=== PATIENT | male | born 1955 | race Hispanic/Latino ===

== ENCOUNTER → 2018-12-11 | Outpatient (CLI) | payer MEDICARE ==
[~2018-12-11] MED LIST: ALBUTEROL/IPRATROPIUM 3 ML NEB ONE; BACTROBAN15 G1 TOP; COUMADIN5 MG PO; COUMADIN7.5 MG PO; Ciprofloxacin PO; FERROUS SULFAT325 MG PO; FINASTERIDE5 MG PO; KEFLEX500 MG PO; LATANOPROST2.5 ML OP; LEVOTHYROXINE75 MCG PO; LOVENOX60 MG/0.6 SC; METOPROLOL TART25 MG PO; MIRALAX17 G1; MIRALAX17 GM PO; ULTRAM 50MG50 MG PO; WARFARIN SODIU2.5 MG PO; Z.0.ALAVERT10 MG; Z.0.BACLOFEN10 MG PO; Z.0.FLOMAX0.4 MG PO; Z.0.LEVOTHYROXINE50 PO; Z.0.NEXIUM40 MG PO; ZANTAC150 MG PO; [UNRECOGNIZED DRUG - OTHER]; [UNRECOGNIZED DRUG - OTHER] PO
--- NOTE | 2018-12-11 14:07 | Diagnostic Imaging Report ---
EXAMINATION: CT scan of the chest without contrast. TECHNIQUE: Spiral CT images of the chest were performed from the lung apices to the level of the adrenal glands. No intravenous contrast was administered per referring physician request. Coronal and sagittal reformatted images were obtained. COMPARISON: Multiple prior chest radiographs most recently 08/24/2017 CLINICAL HISTORY:Pleural effusion DISCUSSION: ABSENCE OF INTRAVENOUS CONTRAST DECREASES SENSITIVITY FOR DETECTION OF FOCAL LESIONS AND VASCULAR PATHOLOGY. LINES/TUBES: None. LUNGS AND AIRWAYS: Mild biapical pleural-parenchymal scar. Right lung is otherwise well-inflated and without consolidation, mass lesion, or bronchiectasis. Lingular and left lower lobe volume loss with bandlike opacities with pleural extension and architectural distortion most notably medially within the left lower lobe for example on series 3 image 90. Uniform posterior and lateral pleural thickening along with prominent epicardial fat. Scattered small pleural calcifications. The airways are normal, without endobronchial lesions. PLEURA: No pleural effusion. No pneumothorax. HEART AND MEDIASTINUM: Visualized portions of the thyroid gland are normal. moderate cardiomegaly status post mitral valve replacement. Calcifications of the right atrial appendage. Sequela of coronary artery bypass. Atherosclerotic calcifications of the [place] coronary arteries. No pericardial effusion. LYMPH NODES: There is no mediastinal, hilar or axillary lymphadenopathy. ABDOMEN: Visualized portions of the liver, spleen, pancreas, adrenals, and kidneys are unremarkable. BONES AND SOFT TISSUES: Status post median sternotomy. No acute osseous abnormalities. Diffuse osteopenia with multilevel degenerative disc changes of the thoracic spine. IMPRESSION: No pleural effusion per clinical query. 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 Nodular opacity in the medial left lung base with pleural extension and architectural distortion likely reflects rounded atelectasis. Follow-up CT scan of the chest without contrast in 3-6 months is suggested to document stability. Signed by: Dr. Juan Magana M.D. on 12/11/2018 2:04 PM
== END ==
LOC: CT 13:06
PROVIDERS: ATTEND Internal Medicine
DX: Z87.09 Personal history of other diseases of the respiratory system (principal)
CPT/HCPCS: 71250; 94060; 94727; 94729

== ENCOUNTER 2019-01-20 14:11 | Emergency (ER) | payer MEDICARE ==
[~2019-01-20] VITALS: Ht 170.2 cm; Wt 53.5 kg
[~2019-01-20 14:11] MED LIST changes: -ALBUTEROL/IPRATROPIUM 3 ML NEB ONE
--- OUTSIDE RECORDS SUMMARY | 2019-01-20 14:14 | XMS REPORT ---
Author Author [facility] Address Unknown Phone Unavailable Care Team Providers Care Supervisor [employer] Name Role Phone WAQAS HOWE Unavailable Unavailable Mayur HANKINS Unavailable Unavailable Problems This patient has no known problems. Allergies, Adverse Reactions, Alerts This patient has no known allergies or adverse reactions. Medications This patient has no known medications. Results Test Description Test Time Test Comments Text Results Atomic Results Result Comments CT CHEST WO 2018-12-11 13:53:00 [facility] [address] [address] Patient Name: TETE MARIE MR #: [id number] : 1955 Age/Sex: 63/M Req #: [id number] Adm Physician: Ordered by: WAQAS HOWE MD Report #: [id number] Location: CT Room/Bed: Procedure: [id number] CT/CT CHEST WO Exam Date: Exam Time: REPORT STATUS: Signed EXAMINATION: CT scan of the chest without contrast. TECHNIQUE: Spiral CT images of the chest were performed from the lung apices to the level of the adrenal glands. No intravenous contrast was administered per referring physician request. Coronal and sagittal reformatted images were obtained. COMPARISON: Multiple prior chest radiographs most recently 08/24/2017 CLINICAL HISTORY:Pleural effusion DISCUSSION: ABSENCE OF INTRAVENOUS CONTRAST DECREASES SENSITIVITY FOR DETECTION OF FOCAL LESIONS AND VASCULAR PATHOLOGY. LINES/TUBES: None. LUNGS AND AIRWAYS: Mild biapical pleural-parenchymal scar. Right lung is otherwise well-inflated and without consolidation, mass lesion, or bronchiectasis. Lingular and left lower lobe volume loss with bandlike opacities with pleural extension and architectural distortion most notably medially within the left lower lobe for example on series 3 image 90. Uniform posterior and lateral pleural thickening along with prominent epicardial fat. Scattered small pleural calcifications. The airways are normal, without endobronchial lesions. PLEURA: No pleural effusion. No pneumothorax. HEART AND MEDIASTINUM: Visualized portions of the thyroid gland are normal. moderate cardiomegaly status post mitral valve replacement. Calcifications of the right atrial appendage. Sequela of coronary artery bypass. Atherosclerotic calcifications of the [place] coronary arteries. No pericardial effusion. LYMPH NODES: There is no mediastinal, hilar or axillary lymphadenopathy. ABDOMEN: Visualized portions of the liver, spleen, pancreas, adrenals, and kidneys are unremarkable. BONES AND SOFT TISSUES: Status post median sternotomy. No acute osseous abnormalities. Diffuse osteopenia with multilevel degenerative disc changes of the thoracic spine. IMPRESSION: No pleural effusion per clinical query. 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 Nodular opacity in the medial left lung base with pleural extension and architectural distortion likely reflects rounded atelectasis. Follow-up CT scan of the chest without contrast in 3-6 months is suggested to document stability. Signed by: Dr. Annalise Jara M.D. on 12/11/2018 2:04 PM Dictated By: ANNALISE JARA MD [id number] Transcribed By: BALJINDER on 12/11/18 1401 COPY TO: WAQAS HOWE MD CHEST SINGLE (PORTABLE) [place] [address] Patient Name: TETE MARIE MR #: [id number] : 1955 Age/Sex: 62/M Req #: [id number] Adm Physician: Ordered by: ALIYA ANDERSON NEUROSCIENTIST Report #: [id number] Location: Room/Bed: Procedure: [id number] DX/CHEST SINGLE (PORTABLE) Exam Date: 08/24/17 Exam Time: 1636 REPORT STATUS: Signed PROCEDURE: A single AP view of the chest. COMPARISON: Chest x-ray 01/06/17. INDICATIONS: CHEST PRESSURE FINDINGS: Lines/tubes: Median sternotomy wires and mediastinal clips are unchanged. Prosthetic valve remains in place. Lungs: The lungs are hyper inflated and clear. Stable scarring the left lung base. There is no evidence of pneumonia or pulmonary edema. Pleura: Unchanged small left pleural effusion versus pleural thickening. Heart and mediastinum: Stable mild cardiomegaly. Bones: No acute bony abnormality. Stable posttraumatic/postsurgical changes in left ribs. IMPRESSION: 1. Stable scarring in the left lung base with unchanged left pleural thickening/small pleural effusion. 2. No acute cardiopulmonary disease. Dictated by: Melissa Blanchard M.D. on 08/24/2017 at 17:17 Electronically approved by: Melissa Blanchard M.D. on 08/24/2017 at 17:17 Dictated By: MELISSA BLANCHARD MD 16 Transcribed By: DEEPA on 08/24/171716 COPY TO: ALIYA ANDERSON NEUROSCIENTIST
[2019-01-20] MEDS ORDERED: SODIUM CHLORIDE 0.9% 1000ML 1,000 ML IV STA (14:38)
[2019-01-20 15:17] LABS: BASOPHILS % 0.7 % (0.0-1.0); EOSINOPHILS # (AUTO) 0.1 (0.0-0.4); EOSINOPHILS % 1.7 % (0.0-6.0); HEMATOCRIT 37.3 % (38.2-49.6); HEMOGLOBIN 12.2 g/dL (14.0-18.0); LYMPHOCYTES # (AUTO) 0.7 (1.0-3.2); LYMPHOCYTES % 14.1 % (18.0-39.1); MEAN CORPUSCULAR HEMOGLOBIN 31.1 pg (28-32); MEAN CORPUSCULAR HGB CONC 32.7 g/dL (31-35); MEAN CORPUSCULAR VOLUME 95.2 fL (81-99); MONOCYTES # (AUTO) 0.5 (0.2-0.8); MONOCYTES % 10.4 % (4.4-11.3); NEUTROPHILS # (AUTO) 3.4 (2.1-6.9); NEUTROPHILS % 73.1 % (38.7-80.0); PLATELET COUNT 284 x10e3/uL (140-360); RED BLOOD COUNT 3.92 x10e6/uL (4.3-5.7)
[2019-01-20 15:25] LABS: INR 3.41; PROTHROMBIN TIME 35.2 seconds (11.9-14.5)
[2019-01-20 15:26] LABS: PARTIAL THROMBOPLASTIN TIME 56.4 seconds (23.8-35.5)
[2019-01-20 15:34] LABS: ALANINE AMINOTRANSFERASE 19 IU/L (0-55); ALBUMIN 3.6 g/dL (3.5-5.0); ALBUMIN/GLOBULIN RATIO 0.9 (0.8-2.0); ALKALINE PHOSPHATASE 60 IU/L (40-150); ANION GAP 9.2 mmol/L (8-16); BLOOD UREA NITROGEN 20 mg/dL (7-26); BUN/CREATININE RATIO 25 (6-25); CARBON DIOXIDE 30 mmol/L (22-29); CHLORIDE 101 mmol/L (98-107); CREATININE, SERUM 0.79 mg/dL (0.72-1.25); EST GLOMERULAR FILTRATION RATE > 60 ML/MIN (60-); GLUCOSE 94 mg/dL (74-118); POTASSIUM 4.2 mmol/L (3.5-5.1); SODIUM 136 mmol/L (136-145)
[2019-01-20 15:34] LABS: CLARITY,URINE CLOUDY (CLEAR); COLOR,URINE BROWN (YELLOW); LEUKOCYTE ESTERASE ,URINE NEGATIVE (NEGATIVE); NITRITE,URINE NEGATIVE (NEGATIVE)
[2019-01-20 15:35] LABS: BACTERIA,URINE MODERATE /HPF; BILIRUBIN,URINE NEGATIVE (NEGATIVE); EPITHELIAL CELLS,URINE FEW /LPF; KETONES,URINE NEGATIVE (NEGATIVE); PROTEIN,URINE DIPSTICK 2+ (NEGATIVE); RBC,URINE >50 /HPF (0-5); URINE UROBILINOGEN 0.2 mg/dL (0.2 - 1); WBC,URINE (MAN) 0-5 /HPF (0-5)
[2019-01-20] MEDS ORDERED: IOPAMIDOL 370 MG/ML 200 ML INFUS..BTL INJ ONE (16:01)
[2019-01-20] MEDS ORDERED: SODIUM CHLORIDE 0.9% 250ML 250 ML ONE (16:02)
[2019-01-20] MEDS ORDERED: MEROPENEM 1GM 100 ML IV NR (17:45)
--- NOTE | 2019-01-20 17:51 | Diagnostic Imaging Report ---
EXAMINATION: CT of the abdomen and pelvis with and without contrast. TECHNIQUE: Helical CT images of the abdomen and pelvis were performed from the lung bases to the lesser trochanters before and after the intravenous administration of 150 cc of isovue 300 and the oral administration of none. Hematuria protocol. Dose modulation, iterative reconstruction, and/or weight based adjustment of the mA/kV was utilized to reduce the radiation dose to as low as reasonably achievable. COMPARISON: 01/08/2019 CLINICAL HISTORY:hematuria, pain DISCUSSION: ABDOMEN/PELVIS: LOWER THORAX:Unremarkable. HEPATOBILIARY: No focal hepatic lesions. No biliary ductal dilatation.The gallbladder is normal. SPLEEN: No splenomegaly. PANCREAS: No focal masses or ductal dilatation. ADRENALS: No adrenal nodules. KIDNEYS/URETERS: Right renal 2 mm calculus. Punctate left renal calculi. No solid mass lesion. No filling defect within the collecting system. Few cysts. PELVIC ORGANS/BLADDER: The bladder is normal. PERITONEUM/RETROPERITONEUM: No free air or fluid. LYMPH NODES: No intra-abdominal,retroperitoneal, pelvic or inguinal lymphadenopathy. VESSELS: Mild vascular calcifications. GI TRACT: No distention or wall thickening. BONES AND SOFT TISSUE: No bony destructive lesions. No soft tissue abnormalities. IMPRESSION: Nonobstructing renal calculi. Otherwise, unremarkable CT urogram Signed by: Dr. Braydon Townsend M.D. on 01/20/2019 5:48 PM
== END 2019-01-20 19:37 | disposition home or self-care (01) ==
LOC: ER 14:11
DX: R30.0 Dysuria (principal); N30.91 Cystitis, unspecified with hematuria; I25.10 Atherosclerotic heart disease of native coronary artery without angina pectoris; G35 Multiple sclerosis; E03.9 Hypothyroidism, unspecified; D64.9 Anemia, unspecified; Z95.1 Presence of aortocoronary bypass graft
CPT/HCPCS: 36415; 74178; 80053; 81001; 85025; 85610; 85730; 87086; 87186; 99284; J2185; J7030; J7050; Q9967

== ENCOUNTER 2019-03-30 02:13 | Observation (INO) | payer MEDICARE ==
[~2019-03-30] VITALS: Ht 170.2 cm; Wt 53.5 kg
[2019-03-30] VITALS (7 sets, daily range): BP systolic 133–144; BP diastolic 65–75
[2019-03-30 02:45] LABS: BASOPHILS % 1.2 % (0.0-1.0); EOSINOPHILS # (AUTO) 0.1 (0.0-0.4); EOSINOPHILS % 2.7 % (0.0-6.0); HEMOGLOBIN 12.1 g/dL (14.0-18.0); LYMPHOCYTES # (AUTO) 0.9 (1.0-3.2); LYMPHOCYTES % 28.2 % (18.0-39.1); MEAN CORPUSCULAR HEMOGLOBIN 30.2 pg (28-32); MEAN CORPUSCULAR HGB CONC 31.8 g/dL (31-35); MEAN CORPUSCULAR VOLUME 94.8 fL (81-99); MONOCYTES # (AUTO) 0.6 (0.2-0.8); MONOCYTES % 18.5 % (4.4-11.3); NEUTROPHILS # (AUTO) 1.6 (2.1-6.9); NEUTROPHILS % 49.1 % (38.7-80.0); PLATELET COUNT 241 x10e3/uL (140-360); RED BLOOD COUNT 4.01 x10e6/uL (4.3-5.7); RED CELL DISTRIBUTION WIDTH 13.6 % (11.7-14.4)
[2019-03-30] MEDS ORDERED: LATANOPROST2.5 ML OU (02:50)
[2019-03-30] MEDS ORDERED: BETASERON0.3 MG SC (02:50)
[2019-03-30] MEDS ORDERED: BACLOFEN20 MG PO (02:50)
[2019-03-30 02:56] LABS: INR 3.2; PROTHROMBIN TIME 33.5 seconds (11.9-14.5)
[2019-03-30 02:57] LABS: PARTIAL THROMBOPLASTIN TIME 57.5 seconds (23.8-35.5)
[2019-03-30 03:06] LABS: ALANINE AMINOTRANSFERASE 20 IU/L (0-55); ALBUMIN 3.7 g/dL (3.5-5.0); ALKALINE PHOSPHATASE 72 IU/L (40-150); ANION GAP 12.8 mmol/L (8-16); BLOOD UREA NITROGEN 17 mg/dL (7-26); BUN/CREATININE RATIO 22 (6-25); CALCIUM 9.1 mg/dL (8.4-10.2); CARBON DIOXIDE 27 mmol/L (22-29); CHLORIDE 100 mmol/L (98-107); CREATINE KINASE 91 IU/L (30-200); CREATININE, SERUM 0.77 mg/dL (0.72-1.25); EST GLOMERULAR FILTRATION RATE > 60 ML/MIN (60-); GLUCOSE 120 mg/dL (74-118); POTASSIUM 3.8 mmol/L (3.5-5.1); SODIUM 136 mmol/L (136-145)
--- NOTE | 2019-03-30 03:14 | Diagnostic Imaging Report ---
EXAMINATION: CHEST SINGLE (PORTABLE) COMPARISON: CT chest 12/11/2018 INDICATION: Chest pressure ^CP ^[id number] ^0240 ^N DISCUSSION: Frontal view of the chest obtained at 0244 hours. HEART AND MEDIASTINUM: Stable cardiomegaly. Prosthetic mitral valve annulus is stable LINES: None. LUNGS: The lungs are diffusely hyperinflated. Blunting of the left lateral costophrenic angle tracking along the lateral lung base is stable. Right lung is clear. PLEURA: No pneumothorax. BONES AND SOFT TISSUES: Sternotomy wires are intact. Stable mild volume loss of the left hemithorax. No focal osseous lesions. The soft tissues are normal. IMPRESSION: Stable left pleural thickening. Stable pulmonary hyperinflation consistent with COPD. Cardiomegaly. No vascular congestion. Signed by: Dr. Susanne Levi MD on 03/30/2019 3:11 AM
[2019-03-30] MEDS ORDERED: ACETAMINOPHEN 325 MG TAB PO ONE (03:30)
[2019-03-30 03:35] LABS: ALBUMIN/GLOBULIN RATIO 0.9 (0.8-2.0)
--- NOTE | 2019-03-30 03:37 | NUR ---
SED RATE COLLECTED AND SENT. MEDICATED WITH TYLENOL FOR PAIN PER ORDERS
[2019-03-30] MEDS ORDERED: NITROGLYCERIN 0.4 MG SUBL SL PRN (04:15)
[2019-03-30] MEDS ORDERED: ACETAMINOPHEN 325 MG TAB PO PRN ×2 (04:15→05:00)
[2019-03-30] MEDS ORDERED: SODIUM CHLORIDE FLUSH 10 ML SYR INJ PRN (04:15)
[2019-03-30] MEDS ORDERED: ONDANSETRON HCL INJ 2MG/ML 2ML 2 MG/ML VIAL IV PRN (04:15)
[2019-03-30] MEDS ORDERED: FAMOTIDINE 20 MG TAB PO SCH ×2 (04:15→09:00)
--- NOTE | 2019-03-30 05:47 | Diagnostic Imaging Report ---
EXAMINATION: Head CT without contrast. HISTORY:Headache, status post fall on Coumadin. COMPARISON:None. TECHNIQUE: Multidetector axial images were obtained from the foramen magnum to the vertex without contrast. The images were reconstructed using brain and bone algorithms. Thin section brain images were reformatted into coronal and sagittal planes. Dose modulation, iterative reconstruction, and/or weight based adjustment of the mA/kV was utilized to reduce the radiation dose to as low as reasonably achievable. Intravenous contrast: None IMAGE QUALITY: Acceptable. FINDINGS: Skull/scalp: No lytic or blastic. lesions. No surgical changes. Parenchyma: Nonspecific few, scattered supratentorial white matter hypodensity are likely related to small vessel ischemic changes. Focal hypodensity in left caudate head that extends to anterior limb of left internal capsule and anterior aspect of left putamen represents old vascular insult. No acute hemorrhage, mass or acute major vascular territorial infarct. Arteries: No density suggestive of thrombosis. Dural sinuses: No abnormal density suggestive of thrombosis. Ventricles: No hydrocephalus or displacement. Extra-axial spaces: No abnormal density. Brain volume: Mild generalized cerebral volume loss. Craniocervical junction: No mass, Chiari malformation, or basilar invagination. Sella: No mass. Paranasal/mastoid sinuses: Imaged portions unremarkable. IMPRESSION: 1. No acute posttraumatic intracranial abnormality. 2. Mild supratentorial white matter microvascular ischemic change. Old vascular insult in left striato- capsular region. 3. Mild generalized cerebral volume loss. Signed by: Dr. Michaela Chand M.D. on 03/30/2019 5:44 AM
--- NOTE | 2019-03-30 06:40 | NUR ---
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 call swanson within reach and bed in lowest position.
[2019-03-30] MEDS ORDERED: ASPIRIN 81 MG ENTERIC COATED PO SCH (09:00)
[2019-03-30 10:51] LABS: CREATINE KINASE 74 IU/L (30-200)
[2019-03-30] MEDS ORDERED: METOPROLOL TARTRATE 25 MG TAB PO SCH (17:00)
[2019-03-30] MEDS ORDERED: WARFARIN SOD 5 MG TAB PO SCH (17:00)
[2019-03-30 17:39] LABS: CREATINE KINASE MB 1.8 ng/mL (0-5.0)
[2019-03-30] MEDS ORDERED: LISINOPRIL2.5 MG PO (18:31)
--- NOTE | 2019-03-30 18:40 | Consultation ---
DATE OF CONSULTATION: 03/30/2019 Cardiology Consult Note REASON FOR CONSULT: Chest pain. CHIEF COMPLAINT: Headaches and chest pain. HISTORY OF PRESENT ILLNESS: The patient is a 63-year-old man with history of mitral valve replacement, mechanical mitral valve on Coumadin, presenting with several days of chest pain and headaches. He says headaches are what bothers him more, but he has also been having episodes of chest pain that are left-sided, sharp, moderate to severe in severity. When they occur, they lasts somewhere between 10 minutes to up to an hour, nonexertional, not associated with shortness of breath or diaphoresis. He says he has history of gastroesophageal reflux disease. Of note, the patient had one vessel bypass surgery along with his mitral valve replacement in 2012, likely OLGUIN to LAD. PAST MEDICAL HISTORY: 1. GERD. 2. Benign prostatic hypertrophy. 3. Hypothyroidism. PAST SURGICAL HISTORY: Status post mechanical mitral valve replacement and one vessel coronary artery bypass graft surgery in 2012. SOCIAL HISTORY: The patient does not smoke, drink, or abuse drugs. FAMILY HISTORY: No family history of early CAD or sudden cardiac . REVIEW OF SYSTEMS: A 10-point review of systems as per HPI, otherwise negative. OUTPATIENT MEDICATIONS: Reviewed. OBJECTIVE: VITAL SIGNS: Temperature afebrile, pulse 65, respiratory rate 21, blood pressure 134/65, and saturating 99% on room air. GENERAL: Middle-aged man, well developed, well nourished, in no acute distress. CARDIOVASCULAR: Regular rate and rhythm. Mechanical click. No murmurs, rubs, or gallops. LUNGS: Clear to auscultation bilaterally. ABDOMEN: Soft, nontender, and nondistended. NEURO AND PSYCH: Alert and oriented to person, place, and time. Normal affect. INPATIENT MEDICATIONS: Reviewed. LABORATORY DATA: Reviewed. Hemoglobin is 12.1. Troponins are negative x2. INR 3.2, which is therapeutic. IMAGING DATA: Reviewed. Chest x-ray shows stable left pleural thickening, stable hyperinflation consistent with COPD and no pulmonary edema or vascular congestion. Head CT shows no acute intracranial abnormalities. TELEMETRY DATA: Reviewed, shows normal sinus rhythm. Echocardiogram reviewed. Ejection fraction about 45% to 50%, normal functioning mechanical valve. ASSESSMENT: 1. Coronary artery disease status post one vessel coronary artery bypass graft in 2012. 2. Mechanical mitral valve replacement in 2012. 3. Chronic systolic heart failure, ejection fraction 45%. 4. Chest pain, atypical. PLAN: The patient has been ruled out for acute LA with serial troponins and EKGs. Echocardiogram shows stable mechanical mitral valve function. INR is therapeutic. Chest pain is atypical, unlikely to be cardiac in origin. The patient is okay to be discharged from cardiovascular standpoint and follow up with his outpatient nursing professor. We can discuss possible outpatient stress test at that time. Continue current dose of Coumadin. Thank you for this consult. We will continue to follow. MD BALDEV Bradshaw/MODL /[id number]
--- NOTE | 2019-03-30 18:55 | NUR ---
patient alert and oriented with at bedside. discharge instructions given to patient at this time, both verbalized understanding. IV discontinued, catheter in tact and pressure dressing applied. Patient to be escorted to personal auto for to drive home.
[2019-03-31] MEDS ORDERED: LEVOTHYROXINE SODIUM 75 MCG TAB PO SCH (06:00)
[2019-03-31] MEDS ORDERED: PANTOPRAZOLE SOD 40 MG TABEC PO SCH (07:30)
[2019-03-31] MEDS ORDERED: FINASTERIDE 5 MG TAB PO SCH (09:00)
[2019-03-31] MEDS ORDERED: TAMSULOSIN HCL 0.4 MG CAP PO SCH (09:00)
== END 2019-03-30 18:55 | disposition home or self-care (01) ==
LOC: ER 02:13 → ERHOLD 04:46 → IMCU 04:55
PROVIDERS: ADMIT Internal Medicine; ATTEND Internal Medicine
DX: R07.89 Other chest pain (principal); G44.219 Episodic tension-type headache, not intractable; Z95.2 Presence of prosthetic heart valve; Z79.01 Long term (current) use of anticoagulants; K21.9 Gastro-esophageal reflux disease without esophagitis; N40.0 Benign prostatic hyperplasia without lower urinary tract symptoms; E03.9 Hypothyroidism, unspecified; Z95.1 Presence of aortocoronary bypass graft; I11.0 Hypertensive heart disease with heart failure; I50.22 Chronic systolic (congestive) heart failure; Z88.8 Allergy status to other drugs, medicaments and biological substances
CPT/HCPCS: 36415; 70450; 71045; 80053; 82550; 82553; 83880; 84484; 85025; 85610; 85651; 85730; 93005; 93306; 99284; G0378

== ENCOUNTER 2021-11-15 16:43 | Emergency (ER) | payer MEDICARE ==
[~2021-11-15] VITALS: Ht 170.2 cm; Wt 53.5 kg
[~2021-11-15 16:43] MED LIST changes: +BACLOFEN20 MG PO; +BETASERON0.3 MG SC; +LATANOPROST2.5 ML OU; +LISINOPRIL2.5 MG PO
[2021-11-15 17:13] LABS: BASOPHILS # (AUTO) 0.1 (0.0-0.1); BASOPHILS % 1.3 % (0.0-1.0); EOSINOPHILS # (AUTO) 0.1 (0.0-0.4); EOSINOPHILS % 1.7 % (0.0-6.0); HEMATOCRIT 38.7 % (38.2-49.6); HEMOGLOBIN 12.2 g/dL (14.0-18.0); MEAN CORPUSCULAR HGB CONC 31.5 g/dL (31-35); MEAN CORPUSCULAR VOLUME 95.3 fL (81-99); MONOCYTES # (AUTO) 0.6 (0.2-0.8); MONOCYTES % 12.1 % (4.4-11.3); NEUTROPHILS # (AUTO) 2.9 (2.1-6.9); NEUTROPHILS % 63.7 % (38.7-80.0); PLATELET COUNT 256 x10e3/uL (140-360); RED BLOOD COUNT 4.06 x10e6/uL (4.3-5.7)
[2021-11-15 17:20] LABS: INR 2.83; PROTHROMBIN TIME 31.3 seconds (11.9-14.5)
[2021-11-15 17:21] LABS: PARTIAL THROMBOPLASTIN TIME 50.3 seconds (23.8-35.5)
[2021-11-15 17:28] LABS: ANION GAP 8.2 mmol/L (8-16); CALCIUM 9.3 mg/dL (8.4-10.2); CREATININE, SERUM 0.76 mg/dL (0.72-1.25); POTASSIUM 4.2 mmol/L (3.5-5.1)
[2021-11-15 17:34] LABS: CREATINE KINASE MB 1.4 ng/mL (0-5.0)
[2021-11-15] MEDS ORDERED: SODIUM CHLORIDE 0.9% 50ML 50 ML ONE (18:08)
[2021-11-15] MEDS ORDERED: IOPAMIDOL 370 MG/ML 200 ML INFUS..BTL INJ ONE (18:08)
== END 2021-11-15 19:41 | disposition home or self-care (01) ==
LOC: ER 17:51
DX: R09.1 Pleurisy (principal); R94.31 Abnormal electrocardiogram [ECG] [EKG]; E03.9 Hypothyroidism, unspecified; D64.9 Anemia, unspecified; G35 Multiple sclerosis; K21.9 Gastro-esophageal reflux disease without esophagitis; Z20.822 Contact with and (suspected) exposure to COVID-19; Z95.2 Presence of prosthetic heart valve
CPT/HCPCS: 36415; 71260; 80048; 82550; 82553; 84484; 85025; 85610; 85730; 93005; 99284; Q9967; U0002

== ENCOUNTER 2023-08-11 19:40 | Emergency (ER) | payer MEDICARE ==
[~2023-08-11] VITALS: Ht 170.2 cm; Wt 67.1 kg
[2023-08-11 21:03] LABS: BASOPHILS % 0.7 % (0.0-1.0); EOSINOPHILS # (AUTO) 0.1 (0.0-0.4); EOSINOPHILS % 3.4 % (0.0-6.0); HEMATOCRIT 33.4 % (38.2-49.6); HEMOGLOBIN 11.2 g/dL (14.0-18.0); LYMPHOCYTES # (AUTO) 0.5 (1.0-3.2); LYMPHOCYTES % 12.3 % (18.0-39.1); MEAN CORPUSCULAR HEMOGLOBIN 29.3 pg (28-32); MEAN CORPUSCULAR HGB CONC 33.5 g/dL (31-35); MEAN CORPUSCULAR VOLUME 87.4 fL (81-99); MONOCYTES # (AUTO) 0.5 (0.2-0.8); MONOCYTES % 12.7 % (4.4-11.3); NEUTROPHILS # (AUTO) 2.9 (2.1-6.9); NEUTROPHILS % 70.7 % (38.7-80.0); PLATELET COUNT 243 x10e3/uL (140-360); RED BLOOD COUNT 3.82 x10e6/uL (4.3-5.7); RED CELL DISTRIBUTION WIDTH 14.5 % (11.7-14.4); WHITE BLOOD COUNT 4.16 x10e3/uL (4.8-10.8)
[2023-08-11 21:19] LABS: ALANINE AMINOTRANSFERASE 18 IU/L (0-55); ALBUMIN 3.9 g/dL (3.5-5.0); ALBUMIN/GLOBULIN RATIO 1.1 (0.8-2.0); ALKALINE PHOSPHATASE 68 IU/L (40-150); ANION GAP 11.2 mmol/L (8-16); BLOOD UREA NITROGEN 11 mg/dL (7-26); BUN/CREATININE RATIO 14 (6-25); CALCIUM 9.2 mg/dL (8.4-10.2); CARBON DIOXIDE 31 mmol/L (22-29); CHLORIDE 98 mmol/L (98-107); CREATINE KINASE 79 IU/L (30-200); CREATININE, SERUM 0.78 mg/dL (0.72-1.25); GLUCOSE 125 mg/dL (74-118); POTASSIUM 4.2 mmol/L (3.5-5.1); SODIUM 136 mmol/L (136-145)
[2023-08-11 21:21] LABS: CLARITY,URINE SL CLOUDY (CLEAR); COLOR,URINE STRAW (YELLOW); KETONES,URINE NEGATIVE (NEGATIVE); LEUKOCYTE ESTERASE ,URINE TRACE (NEGATIVE); NITRITE,URINE NEGATIVE (NEGATIVE); PROTEIN,URINE DIPSTICK NEGATIVE (NEGATIVE); URINE UROBILINOGEN 0.2 mg/dL (0.2 - 1)
[2023-08-11] MEDS ORDERED: IOPAMIDOL 370 MG/ML 100 ML INFUS..BTL INJ ONE (21:28)
[2023-08-11 21:32] LABS: BACTERIA,URINE RARE /HPF; RBC,URINE 21-50 /HPF (0-5); WBC,URINE (MAN) 0-5 /HPF (0-5)
[2023-08-12 00:21] VITALS: BP 127/84; PULSE 74; RESP 18; TEMP 98.3; O2SAT 99
== END 2023-08-11 23:41 | disposition home or self-care (01) ==
LOC: ER 19:45
DX: R06.00 Dyspnea, unspecified (principal); R10.30 Lower abdominal pain, unspecified; R31.9 Hematuria, unspecified; E03.9 Hypothyroidism, unspecified; G35 Multiple sclerosis; K21.9 Gastro-esophageal reflux disease without esophagitis; Z95.4 Presence of other heart-valve replacement
CPT/HCPCS: 36415; 71260; 74177; 80053; 81001; 82550; 83690; 83880; 84484; 85025; 93005; 99284; Q9967

== ENCOUNTER 2023-08-25 19:22 | Emergency (ER) | payer MEDICARE ==
[~2023-08-25] VITALS: Ht 170.2 cm; Wt 67.1 kg
[2023-08-25 20:05] VITALS: O2SAT 98
[2023-08-25] MEDS ORDERED: ULTRAM 50MG50 MG PO (20:38)
== END 2023-08-25 20:26 | disposition home or self-care (01) ==
LOC: ER 19:28
DX: R10.9 Unspecified abdominal pain (principal); N20.0 Calculus of kidney; D64.9 Anemia, unspecified; E03.9 Hypothyroidism, unspecified; G35 Multiple sclerosis; K21.9 Gastro-esophageal reflux disease without esophagitis; Z95.4 Presence of other heart-valve replacement
CPT/HCPCS: 87086; 87186; 99282

== ENCOUNTER 2023-11-26 14:55 | Emergency (ER) | payer MEDICARE ==
[~2023-11-26] VITALS: Ht 170.2 cm; Wt 67.1 kg
[2023-11-26 15:02] VITALS: O2SAT 100
[2023-11-26 15:48] LABS: BILIRUBIN,URINE NEGATIVE (NEGATIVE); CLARITY,URINE CLOUDY (CLEAR); COLOR,URINE YELLOW (YELLOW); GLUCOSE, URINE NEGATIVE (NEGATIVE); KETONES,URINE NEGATIVE (NEGATIVE); LEUKOCYTE ESTERASE ,URINE NEGATIVE (NEGATIVE); NITRITE,URINE NEGATIVE (NEGATIVE); PH,URINE 7 (5 - 7); PROTEIN,URINE DIPSTICK NEGATIVE (NEGATIVE); URINE UROBILINOGEN 0.2 mg/dL (0.2 - 1)
[2023-11-26 16:00] LABS: EPITHELIAL CELLS,URINE FEW /LPF; RBC,URINE >50 /HPF (0-5)
[2023-11-26 16:01] LABS: BACTERIA,URINE MANY /HPF; TRANSITIONAL EPI CELLS,URINE FEW
== END 2023-11-26 17:00 | disposition home or self-care (01) ==
LOC: ER 15:14
DX: R31.9 Hematuria, unspecified (principal); G35 Multiple sclerosis; D64.9 Anemia, unspecified; E03.9 Hypothyroidism, unspecified; K21.9 Gastro-esophageal reflux disease without esophagitis; Z95.4 Presence of other heart-valve replacement
CPT/HCPCS: 81001; 99283

== ENCOUNTER 2024-09-05 10:51 | Inpatient (IN) | payer MEDICARE ==
[~2024-09-05] VITALS: Ht 170.2 cm; Wt 65.3 kg
[2024-09-05] VITALS (7 sets, daily range): BP systolic 122–135; BP diastolic 71–81; PULSE 66–103; RESP 16–18; TEMP 97.8–98; O2SAT 100
[2024-09-05 11:40] LABS: BASOPHILS % 0.7 % (0.0-1.0); EOSINOPHILS # (AUTO) 0.1 (0.0-0.4); EOSINOPHILS % 1.7 % (0.0-6.0); HEMATOCRIT 37.6 % (38.2-49.6); HEMOGLOBIN 11.8 g/dL (14.0-18.0); LYMPHOCYTES # (AUTO) 0.6 (1.0-3.2); LYMPHOCYTES % 20.3 % (18.0-39.1); MEAN CORPUSCULAR HEMOGLOBIN 29.7 pg (28-32); MEAN CORPUSCULAR HGB CONC 31.4 g/dL (31-35); MEAN CORPUSCULAR VOLUME 94.7 fL (81-99); MONOCYTES # (AUTO) 0.4 (0.2-0.8); NEUTROPHILS # (AUTO) 1.9 (2.1-6.9); NEUTROPHILS % 63.3 % (38.7-80.0); PLATELET COUNT 249 x10e3/uL (140-360); RED BLOOD COUNT 3.97 x10e6/uL (4.3-5.7); WHITE BLOOD COUNT 3.01 x10e3/uL (4.8-10.8)
[2024-09-05 12:00] LABS: INR 2.75; PROTHROMBIN TIME 30.4 seconds (11.9-14.5)
[2024-09-05 12:01] LABS: PARTIAL THROMBOPLASTIN TIME 49.4 seconds (23.8-35.5)
[2024-09-05 12:08] LABS: ALBUMIN 3.7 g/dL (3.5-5.0); ALBUMIN/GLOBULIN RATIO 0.9 (0.8-2.0); ANION GAP 10.2 mmol/L (8-16); BILIRUBIN,TOTAL 0.5 mg/dL (0.2-1.2); CALCIUM 9.3 mg/dL (8.4-10.2); CREATININE, SERUM 0.77 mg/dL (0.72-1.25); MAGNESIUM 1.9 MG/DL (1.3-2.1); POTASSIUM 4.2 mmol/L (3.5-5.1); TOTAL PROTEIN 7.8 g/dL (6.5-8.1)
[2024-09-05 12:16] LABS: TROPONIN I 0.014 ng/mL (0-0.300)
[2024-09-05] MEDS ORDERED: ONDANSETRON HCL INJ 2MG/ML 2ML 2 MG/ML VIAL IV PRN (12:30)
[2024-09-05] MEDS ORDERED: NITROGLYCERIN 0.4 MG SUBL SL PRN (12:30)
[2024-09-05] MEDS ORDERED: BETASERON0.3 M1 SC (14:48)
[2024-09-05] MEDS: POLYETHYLENE GLYCOL 3350 17 GM PACK PO PRN (22:10)
[2024-09-06] VITALS: BP 130/74; PULSE 69; RESP 18; TEMP 97.5; O2SAT 100
[2024-09-06 00:02] LABS: CREATINE KINASE 72 IU/L (30-200)
[2024-09-06 01:35] LABS: TROPONIN I < 0.001 ng/mL (0-0.300)
[2024-09-06] MEDS: FAMOTIDINE 20 MG/2 ML VIAL IV SCH (02:06)
[2024-09-06 04:00] VITALS: BP 123/74; PULSE 77; RESP 18; TEMP 97.9; O2SAT 100
[2024-09-06] MEDS: LEVOTHYROXINE SODIUM 75 MCG TAB PO SCH (06:00)
[2024-09-06 06:03] LABS: BASOPHILS % 0.9 % (0.0-1.0); EOSINOPHILS # (AUTO) 0.1 (0.0-0.4); EOSINOPHILS % 3.8 % (0.0-6.0); HEMATOCRIT 35.1 % (38.2-49.6); HEMOGLOBIN 11.1 g/dL (14.0-18.0); LYMPHOCYTES % 28.7 % (18.0-39.1); MEAN CORPUSCULAR HEMOGLOBIN 29.7 pg (28-32); MEAN CORPUSCULAR HGB CONC 31.6 g/dL (31-35); MEAN CORPUSCULAR VOLUME 93.9 fL (81-99); MONOCYTES # (AUTO) 0.5 (0.2-0.8); MONOCYTES % 14.1 % (4.4-11.3); NEUTROPHILS # (AUTO) 1.8 (2.1-6.9); NEUTROPHILS % 52.2 % (38.7-80.0); PLATELET COUNT 229 x10e3/uL (140-360); RED BLOOD COUNT 3.74 x10e6/uL (4.3-5.7); WHITE BLOOD COUNT 3.41 x10e3/uL (4.8-10.8)
[2024-09-06 06:26] LABS: CHOL/HDL RATIO 4.2 (3.9-4.7)
[2024-09-06 06:33] LABS: TROPONIN I 0.005 ng/mL (0-0.300)
[2024-09-06 08:45] VITALS: BP 123/74; PULSE 77; RESP 18; TEMP 97.9; O2SAT 100
[2024-09-06 08:55] VITALS: BP 127/68; PULSE 75; RESP 16; TEMP 98.3; O2SAT 98
[2024-09-06] MEDS ORDERED: REGADENOSON 0.4 MG/5 ML SYR IV ONE (12:34)
[2024-09-06] MEDS: TAMSULOSIN HCL 0.4 MG CAP PO SCH (15:21)
[2024-09-06 15:25] LABS: INR 3.22; PROTHROMBIN TIME 34.4 seconds (11.9-14.5)
[2024-09-06 16:19] VITALS: BP 136/79; PULSE 84; RESP 16; TEMP 98.3; O2SAT 99
[2024-09-06] MEDS: WARFARIN SOD 2.5 MG TAB PO SCH (16:34)
[2024-09-06 20:00] VITALS: BP 146/83; PULSE 94; RESP 20; TEMP 97.2; O2SAT 100
[2024-09-06] MEDS: BACLOFEN 10 MG TAB PO SCH (21:17)
[2024-09-07] VITALS (7 sets, daily range): BP systolic 128–157; BP diastolic 77–91; PULSE 78–107; RESP 18–19; TEMP 97.2–99.5; O2SAT 98–100
[2024-09-07] MEDS ORDERED: ASPIRIN 81 MG ENTERIC COATED PO SCH (09:00)
[2024-09-07] MEDS ORDERED: BACLOFEN 10 MG TAB PO SCH (09:00)
[2024-09-07] MEDS: METOPROLOL TARTRATE 25 MG TAB PO SCH (09:06)
[2024-09-07] MEDS: CLOPIDOGREL BISULFATE 75 MG TAB PO SCH (13:49)
[2024-09-07 18:33] LABS: INR 3.5; PROTHROMBIN TIME 36.7 seconds (11.9-14.5)
[2024-09-08] VITALS (7 sets, daily range): BP systolic 105–149; BP diastolic 73–80; PULSE 71–76; RESP 18–19; TEMP 97.7–98; O2SAT 95–100
[2024-09-08 06:01] LABS: CREATINE KINASE 134 IU/L (30-200)
[2024-09-08 06:21] LABS: TROPONIN I < 0.05 ng/mL (0.0-0.40)
[2024-09-08 13:33] LABS: INR 3.01; PROTHROMBIN TIME 32.6 seconds (11.9-14.5)
[2024-09-09] VITALS (8 sets, daily range): BP systolic 124–146; BP diastolic 70–83; PULSE 63–89; RESP 16–18; TEMP 97.6–98.8; O2SAT 97–100
[2024-09-09 09:28] LABS: INR 2.08; PROTHROMBIN TIME 24.5 seconds (11.9-14.5)
[2024-09-09 11:02] LABS: BASOPHILS # (AUTO) 0.1 (0.0-0.1); BASOPHILS % 1.1 % (0.0-1.0); EOSINOPHILS # (AUTO) 0.1 (0.0-0.4); EOSINOPHILS % 1.3 % (0.0-6.0); HEMATOCRIT 40.8 % (38.2-49.6); HEMOGLOBIN 12.7 g/dL (14.0-18.0); LYMPHOCYTES # (AUTO) 0.7 (1.0-3.2); LYMPHOCYTES % 14.1 % (18.0-39.1); MEAN CORPUSCULAR HGB CONC 31.1 g/dL (31-35); MEAN CORPUSCULAR VOLUME 96.2 fL (81-99); MONOCYTES # (AUTO) 0.6 (0.2-0.8); MONOCYTES % 12.4 % (4.4-11.3); NEUTROPHILS # (AUTO) 3.3 (2.1-6.9); NEUTROPHILS % 70.7 % (38.7-80.0); PLATELET COUNT 255 x10e3/uL (140-360); RED BLOOD COUNT 4.24 x10e6/uL (4.3-5.7); WHITE BLOOD COUNT 4.67 x10e3/uL (4.8-10.8)
[2024-09-09 11:16] LABS: ANION GAP 14.3 mmol/L (8-16); BILIRUBIN,TOTAL 1.2 mg/dL (0.2-1.2); CALCIUM 9.4 mg/dL (8.4-10.2); CREATININE, SERUM 0.79 mg/dL (0.72-1.25); MAGNESIUM 1.8 MG/DL (1.3-2.1); PHOSPHORUS 2.4 MG/DL (2.3-4.7); POTASSIUM 4.3 mmol/L (3.5-5.1); TOTAL PROTEIN 8.2 g/dL (6.5-8.1)
[2024-09-09 12:49] LABS: FREE T4 (FREE THYROXINE) 1.13 ng/dL (0.8-1.8); THYROID STIMULATING HORMONE 1.362 uIU/mL (0.350-4.940)
[2024-09-09] MEDS ORDERED: HEPARIN SOD/DEXTROSE 5% 25000 UNIT/250 ML BAG IV SCH (15:45)
[2024-09-09] MEDS: HEPARIN 25,000 UNIT/D5W 250ML 250 ML IV SCH (18:09)
[2024-09-09] MEDS: WARFARIN SOD 2.5 MG TAB PO SCH (18:53)
[2024-09-10 00:54] LABS: INR 1.91; PROTHROMBIN TIME 22.9 seconds (11.9-14.5)
[2024-09-10 03:33] VITALS: BP 144/75; PULSE 84; RESP 18; TEMP 97.9; O2SAT 98
[2024-09-10] MEDS ORDERED: ENOXAPARIN SOD INJ 60 MG/0.6 ML SYR SC SCH ×2 (06:00→17:00)
[2024-09-10 06:01] LABS: BASOPHILS % 0.8 % (0.0-1.0); EOSINOPHILS # (AUTO) 0.1 (0.0-0.4); EOSINOPHILS % 2.6 % (0.0-6.0); HEMATOCRIT 35.6 % (38.2-49.6); HEMOGLOBIN 11.6 g/dL (14.0-18.0); LYMPHOCYTES # (AUTO) 0.9 (1.0-3.2); LYMPHOCYTES % 18.5 % (18.0-39.1); MEAN CORPUSCULAR HEMOGLOBIN 29.9 pg (28-32); MEAN CORPUSCULAR HGB CONC 32.6 g/dL (31-35); MEAN CORPUSCULAR VOLUME 91.8 fL (81-99); MONOCYTES # (AUTO) 0.7 (0.2-0.8); MONOCYTES % 14.7 % (4.4-11.3); NEUTROPHILS # (AUTO) 3.2 (2.1-6.9); PLATELET COUNT 235 x10e3/uL (140-360); RED BLOOD COUNT 3.88 x10e6/uL (4.3-5.7); WHITE BLOOD COUNT 5.03 x10e3/uL (4.8-10.8)
[2024-09-10 06:21] LABS: INR 1.98; PROTHROMBIN TIME 23.5 seconds (11.9-14.5)
[2024-09-10 06:23] LABS: PARTIAL THROMBOPLASTIN TIME 79.2 seconds (23.8-35.5)
[2024-09-10 06:35] LABS: ALBUMIN 3.4 g/dL (3.5-5.0); ALBUMIN/GLOBULIN RATIO 0.9 (0.8-2.0); ANION GAP 10.9 mmol/L (8-16); CALCIUM 8.7 mg/dL (8.4-10.2); CREATININE, SERUM 0.74 mg/dL (0.72-1.25); POTASSIUM 3.9 mmol/L (3.5-5.1); TOTAL PROTEIN 7.2 g/dL (6.5-8.1)
[2024-09-10 08:00] VITALS: BP 134/72; PULSE 93; RESP 18; TEMP 97.7; O2SAT 97
[2024-09-10] MEDS: METOPROLOL TARTRATE 25 MG TAB PO SCH (08:56)
[2024-09-10 09:00] VITALS: BP 134/72; PULSE 93; RESP 18; TEMP 97.7; O2SAT 97
[2024-09-10 12:15] VITALS: BP 104/87; PULSE 72; RESP 18; TEMP 98; O2SAT 100
[2024-09-10] MEDS: HEPARIN SOD (PORCINE) 1000 UNIT/ML 30ML ONE (12:29)
[2024-09-10] MEDS: HEPARIN SOD/SOD CHLORIDE 2,000 ML ONE (12:31)
[2024-09-10] MEDS: VERAPAMIL HCL 2.5 MG/ML 2 ML VIAL ONE (12:31)
[2024-09-10] MEDS: SODIUM CHLORIDE 0.9% 1000ML 1,000 ML ONE (12:32)
[2024-09-10] MEDS: NITROGLYCERIN/D5W 200 MCG/ML 250 ML ONE (12:32)
[2024-09-10] MEDS: FENTANYL CITRATE/PF 100MCG/2 ML INJ ONE (12:33)
[2024-09-10] MEDS: LIDOCAINE HCL 2% LOCAL 20 ML VIAL ONE (12:33)
[2024-09-10] MEDS: IOPAMIDOL 370 MG/ML 100 ML INFUS..BTL INJ ONE (12:33)
[2024-09-10] MEDS: CLOPIDOGREL BISULFATE 75 MG TAB ONE (12:34)
[2024-09-10] MEDS: MIDAZOLAM HCL 2 MG/2 ML VIAL ONE (12:34)
[2024-09-10] MEDS: ASPIRIN 325 MG TAB ONE (12:34)
[2024-09-10 16:00] VITALS: BP 124/76; PULSE 79; RESP 17; TEMP 97.8; O2SAT 99
[2024-09-10] MEDS ORDERED: LOPRESSOR25 MG PO (16:59)
[2024-09-10] MEDS ORDERED: PLAVIX75 MG PO (16:59)
[2024-09-10] MEDS ORDERED: ATORVASTATIN CA40 MG PO (16:59)
[2024-09-10] MEDS ORDERED: NITROSTAT0.4 MG SL (16:59)
[2024-09-10] MEDS ORDERED: LOVENOX60 MG/0.6 SC (16:59)
[2024-09-10] MEDS ORDERED: ONDANSETRON ODT4 MG PO (16:59)
[2024-09-10] MEDS: ENOXAPARIN SOD INJ 60 MG/0.6 ML SYR SC ONE (17:43)
[2024-09-10] MEDS: ENOXAPARIN SOD INJ 60 MG/0.6 ML SYR SC SCH (17:45)
[2024-09-10 17:46] VITALS: BP 124/76; PULSE 79
[2024-09-10] MEDS ORDERED: ONDANSETRON HCL 4 MG ORAL DISINTEGRATING TAB PO PRN (18:15)
[2024-09-10] MEDS ORDERED: ATORVASTATIN 40 MG TAB PO SCH (21:00)
== END 2024-09-10 20:30 | disposition home or self-care (01) | DRG 322 ==
LOC: ER 11:00 → ERHOLD 12:31 → MED/SURG2 14:41 → OBSVTOIN 09-07 11:17
PROVIDERS: ADMIT Internal Medicine; ATTEND Internal Medicine
PROC: 027034Z Dilation of Coronary Artery, One Artery with Drug-eluting Intraluminal Device, Percutaneous Approach (ICD-10-PCS; principal; 2024-09-09)
PROC: 4A023N7 Measurement of Cardiac Sampling and Pressure, Left Heart, Percutaneous Approach (ICD-10-PCS; 2024-09-09)
PROC: B2111ZZ Fluoroscopy of Multiple Coronary Arteries using Low Osmolar Contrast (ICD-10-PCS; 2024-09-09)
PROC: B2121ZZ Fluoroscopy of Single Coronary Artery Bypass Graft using Low Osmolar Contrast (ICD-10-PCS; 2024-09-09)
DX: I25.10 Atherosclerotic heart disease of native coronary artery without angina pectoris (principal); G35 Multiple sclerosis; E03.9 Hypothyroidism, unspecified; E78.5 Hyperlipidemia, unspecified; K21.9 Gastro-esophageal reflux disease without esophagitis; N40.0 Benign prostatic hyperplasia without lower urinary tract symptoms; N31.9 Neuromuscular dysfunction of bladder, unspecified; Z79.02 Long term (current) use of antithrombotics/antiplatelets; Z79.01 Long term (current) use of anticoagulants; Z79.890 Hormone replacement therapy; Z95.2 Presence of prosthetic heart valve; Z95.1 Presence of aortocoronary bypass graft; Z88.1 Allergy status to other antibiotic agents; Z88.5 Allergy status to narcotic agent; Z88.8 Allergy status to other drugs, medicaments and biological substances
CPT/HCPCS: 36415; 71045; 78452; 80053; 80061; 82550; 83735; 83880; 84100; 84439; 84443; 84484; 85025; 85610; 85730; 92928; 93005; 93017; 93455; 99152; 99153; 99284; A9502; C1725; C1760; C1874; C1887; G0378; J1644; J1650; J2003; J2250; J7030; Q9967

== ENCOUNTER 2024-09-11 06:38 | Emergency (ER) | payer MEDICARE ==
[~2024-09-11] VITALS: Ht 170.2 cm; Wt 65.3 kg
[~2024-09-11 06:38] MED LIST changes: +ATORVASTATIN CA40 MG PO; +BETASERON0.3 M1 SC; +LOPRESSOR25 MG PO; +NITROSTAT0.4 MG SL; +ONDANSETRON ODT4 MG PO; +PLAVIX75 MG PO
[2024-09-11 06:44] VITALS: PULSE 82; RESP 17; TEMP 98.7
[2024-09-11 07:24] LABS: BASOPHILS % 0.8 % (0.0-1.0); EOSINOPHILS # (AUTO) 0.1 (0.0-0.4); EOSINOPHILS % 2.8 % (0.0-6.0); HEMATOCRIT 34.9 % (38.2-49.6); HEMOGLOBIN 11.6 g/dL (14.0-18.0); LYMPHOCYTES # (AUTO) 0.6 (1.0-3.2); LYMPHOCYTES % 10.8 % (18.0-39.1); MEAN CORPUSCULAR HEMOGLOBIN 30.7 pg (28-32); MEAN CORPUSCULAR HGB CONC 33.2 g/dL (31-35); MEAN CORPUSCULAR VOLUME 92.3 fL (81-99); MONOCYTES # (AUTO) 0.7 (0.2-0.8); MONOCYTES % 13.6 % (4.4-11.3); NEUTROPHILS # (AUTO) 3.7 (2.1-6.9); NEUTROPHILS % 71.8 % (38.7-80.0); PLATELET COUNT 249 x10e3/uL (140-360); RED BLOOD COUNT 3.78 x10e6/uL (4.3-5.7); RED CELL DISTRIBUTION WIDTH 14.9 % (11.7-14.4); WHITE BLOOD COUNT 5.09 x10e3/uL (4.8-10.8)
[2024-09-11 07:49] LABS: INR 1.88; PROTHROMBIN TIME 22.6 seconds (11.9-14.5)
[2024-09-11 07:58] LABS: ALBUMIN 3.8 g/dL (3.5-5.0); BILIRUBIN,TOTAL 0.8 mg/dL (0.2-1.2); CALCIUM 9.5 mg/dL (8.4-10.2); CREATININE, SERUM 0.79 mg/dL (0.72-1.25); TOTAL PROTEIN 7.8 g/dL (6.5-8.1)
[2024-09-11 09:04] VITALS: BP 147/74; PULSE 77; RESP 16; O2SAT 100
== END 2024-09-11 09:05 | disposition home or self-care (01) ==
LOC: ER 06:45
DX: R58 Hemorrhage, not elsewhere classified (principal); T50.995A Adverse effect of other drugs, medicaments and biological substances, initial encounter; Z79.01 Long term (current) use of anticoagulants; E03.9 Hypothyroidism, unspecified; I25.10 Atherosclerotic heart disease of native coronary artery without angina pectoris; D64.9 Anemia, unspecified; K21.9 Gastro-esophageal reflux disease without esophagitis; Z95.4 Presence of other heart-valve replacement
CPT/HCPCS: 36415; 80053; 85025; 85610; 85730; 99283